=== PATIENT | female | born 1975 | race Caucasian/White ===

== ENCOUNTER 2018-11-12 09:15 | Day surgery (SDC) | payer OTHER | END 2018-11-12 16:30 | disposition home or self-care (01) | LOC: AMB-ENDOS 09:15 | DX: K60.5 Anorectal fistula (principal) ==

== ENCOUNTER 2018-12-21 06:00 | Day surgery (SDC) | payer OTHER | END 2018-12-21 18:00 | disposition home or self-care (01) | LOC: CIR.AMB 06:00 | DX: K60.5 Anorectal fistula (principal); K64.2 Third degree hemorrhoids ==